=== PATIENT | female | born 1950 | race Caucasian/White ===

== ENCOUNTER 2022-08-13 08:09 | Inpatient (IN) | payer MEDICARE, OTHER ==
[2022-08-13] VITALS (14 sets, daily range): BP systolic 85–123; BP diastolic 38–83; PULSE 61–78; RESP 18–24; TEMP 96.3–99; O2SAT 93–97
[~2022-08-13] VITALS: Ht 154.9 cm; Wt 67.3 kg
[2022-08-13] MEDS ORDERED: 0.9% SODIUM CHLORIDE 10 ML SYRINGE IVP PRN ×2 (08:30→11:00)
[2022-08-13 08:50] LABS: APPEARANCE,URINE TURBID (CLEAR); BILIRUBIN,URINE NEGATIVE (NEGATIVE); GLUCOSE, URINE (UA) 70-100 mg/dL (NEGATIVE); KETONES,URINE NEGATIVE (NEGATIVE); LEUKOCYTE ESTERASE ,URINE LARGE (NEGATIVE); NITRATE,URINE NEGATIVE (NEGATIVE); OCCULT BLOOD,URINE MODERATE (NEGATIVE); PH,URINE 6.5 (5.0-8.0); PROTEIN,URINE 100-200,SEE CONFIRM mg/dL (NEGATIVE); SPECIFIC GRAVITIY, URINE 1.013 (1.003-1.030); UROBILINOGEN,URINE <=1.0 mg/dL (<=1.0)
[2022-08-13 08:55] LABS: SULFOSALICYLIC ACID,URINE 2+ (Negative)
[2022-08-13 08:57] LABS: BACTERIA,URINE Many /HPF (None Seen); RBC,URINE 26-50 /HPF (0-2); RENAL EPITHELIAL CELLS,URINE Few /LPF (None Seen); WBC,URINE >100 /HPF (0-5)
[2022-08-13 09:14] LABS: ANION GAP 22 mmol/L (8-16); CALCIUM, TOTAL 9.8 mg/dL (8.8-10.5); CARBON DIOXIDE 21 mmol/L (22-29); CHLORIDE 100 mmol/L (98-107); CREATININE 7.34 mg/dL (0.60-1.30); GLOMERULAR FILTR. RATE CALC 5 mL/min (>60); GLUCOSE,RANDOM 291 mg/dL (70-110); POTASSIUM 4.8 mmol/L (3.5-5.1); SODIUM SERUM 143 mmol/L (136-145)
[2022-08-13 09:20] LABS: ALANINE AMINOTRANSFERASE 35 U/L (12-78); ALBUMIN 1.9 g/dL (3.4-5.0); ALKALINE PHOSPHATASE 78 U/L (46-116); ASPARTATE AMINOTRANSFERASE 55 U/L (15-37); BASOPHILS % (AUTO) 0.1 % (0.0-2.0); BILIRUBIN,TOTAL 0.3 mg/dL (0.1-1.0); CREATINE KINASE, TOTAL ONLY 44 U/L (26-192); D-DIMER 1.98 mg/L FEU (0.00-0.50); EOSINOPHILS % (AUTO) 0 % (1.0-6.0); INR 1.3 (0.9-1.1); MEAN CORPUSCULAR HEMOGLOBIN 30.8 pg (26.0-34.0); MEAN CORPUSCULAR HGB CONC 30.5 G/dL (31.0-37.0); MEAN CORPUSCULAR VOLUME 101 fL (80-100); PROTHROMBIN TIME 13.2 SEC (9.4-11.6); RED BLOOD CELL COUNT(AUTO) 1.63 MIL/uL (4.00-5.20); TOTAL PROTEIN, SERUM 5.9 g/dL (6.4-8.2)
[2022-08-13 09:26] LABS: LYMPHOCYTES % (AUTO) 4.5 % (22.0-44.0); MONOCYTES # (AUTO) 0.6 K/uL (0.1-1.0); MONOCYTES % (AUTO) 2.5 % (2.0-9.0); NEUTROPHILS # (AUTO) 21.4 K/uL (1.8-7.7); PLATELET COUNT (AUTO) 279 K/uL (150-450); RED CELL DISTRIBUTION WIDTH 16.8 % (11.5-14.5)
[2022-08-13 09:27] LABS: B-TYPE NATRIURETIC PEPTIDE 1260 pg/mL (0-100)
[2022-08-13 09:29] LABS: NEUTROPHILS % (AUTO) 92.9 % (40.0-70.0)
[2022-08-13 09:32] LABS: HEMATOCRIT 16.4 % (36-46)
[2022-08-13 09:34] LABS: COVID AG,FIA SOURCE NASAL SWAB
[2022-08-13 09:34] LABS: LACTIC ACID 6.7 mmol/L (0.4-2.0)
[2022-08-13] MEDS ORDERED: AZITHROMYCIN 500 MG/NS 250 ML IV ONE (09:45)
[2022-08-13] MEDS ORDERED: CefTRIAXone 1 GM/DEXTROSE 50 ML IV ONE (09:45)
[2022-08-13] MEDS ORDERED: ONDANSETRON HCL 4 MG/2 ML VIAL IVP ONE (09:45)
[2022-08-13 09:57] LABS: INFLUENZA TYPE A NEGATIVE FOR TYPE A (NEGATIVE); INFLUENZA TYPE B NEGATIVE FOR TYPE B (NEGATIVE)
[2022-08-13 10:07] LABS: PATHOLOGY REVIEW, DIFF YES
[2022-08-13] MEDS ORDERED: FUROSEMIDE 20 MG/2 ML VIAL IVP ONE (10:30)
[2022-08-13] MEDS ORDERED: PANTOPRAZOLE SODIUM 40 MG/VIAL IVP ONE (10:30)
[2022-08-13] MEDS ORDERED: PANTOPRAZOLE SODIUM 80 MG in SODIUM CHLORIDE 0.9% 100 ML IV SCH (10:30)
[2022-08-13] MEDS ORDERED: ONDANSETRON HCL 4 MG/2 ML VIAL IVP PRN (11:00)
[2022-08-13] MEDS ORDERED: ALBUTEROL SULFATE 2.5 MG/0.5 ML NEB SOLUTION NEB PRN (11:00)
[2022-08-13] MEDS ORDERED: PIPERACILLIN/TAZO 3.375 GM/D5W 50 ML IV ONE (11:00)
[2022-08-13] MEDS ORDERED: IPRATROPIUM BROMIDE 0.5 MG/2.5 ML NEB SOLUTION NEB PRN (11:00)
[2022-08-13] MEDS ORDERED: SODIUM CHLORIDE 0.9% 250 ML IV ONE (11:15)
[2022-08-13] MEDS ORDERED: NOREPINEPHRINE 8 MG/D5%-WATER 250 ML IV ONE (11:15)
[2022-08-13] MEDS ORDERED: VANCOMYCIN 1GM/WATER(PEG/NADA) 200 ML IV PRN (11:15)
[2022-08-13] MEDS ORDERED: NOREPINEPHRINE 8 MG/D5%-WATER 250 ML IV PRN (11:15)
[2022-08-13] MEDS ORDERED: VANCOMYCIN 1GM/WATER(PEG/NADA) 200 ML IV ONE (12:00)
[2022-08-13 14:13] LABS: ABG BASE EXCESS -5.5 mmol/L (-2.0-3.0); ABG CARBOXYHEMOGLOBIN 0.8 % (0.0-1.5); ABG HCO3 20.1 mmol/L (22.0-26.0); ABG METHEMOGLOBIN 0.3 % (0.0-1.5); ABG OXYGEN CONTENT 9.2 mL/dL (15.0-23.0); ABG OXYGEN SATURATION 86.1 % (95.0-98.0); ABG OXYHEMOGLOBIN 85.2 % (94.0-100.0); ABG PCO2 35 mmHg (35-45); ABG PH 7.369 (7.35-7.450); PO2, ARTERIAL BG 58.1 mmHg (75.0-83.0); SOURCE, BLOOD GAS ARTERIAL; TEMPERATURE, FAHRENHEIT, BG 97.3 FAHREN (96.0-98.6)
[2022-08-13 14:14] LABS: ABG TOTAL HEMOGLOBIN 7.6 G/dL (12.0-18.0); O2 DEVICE,BLOOD GAS CANNULA (ROOM AIR); SITE, BLOOD GAS RT RADIAL
[2022-08-13] MEDS: ALBUTEROL SULFATE 2.5 MG/0.5 ML NEB SOLUTION NEB SCH ×2 (14:21→19:57)
[2022-08-13] MEDS: IPRATROPIUM BROMIDE 0.5 MG/2.5 ML NEB SOLUTION NEB SCH ×2 (14:21→19:57)
[2022-08-13 14:28] LABS: HEMATOCRIT 20.1 % (36-46); HEMOGLOBIN 5.9 g/dL (12.0-16.0)
[2022-08-13 17:26] LABS: GLUCOMETER DEV NAME(LOC) ER.6; GLUCOSE,POINT OF CARE 285 MG/DL (70-110)
[2022-08-13] MEDS: PANTOPRAZOLE SODIUM 80 MG in SODIUM CHLORIDE 0.9% 100 ML IV SCH (18:10)
[2022-08-13 20:44] LABS: HEMATOCRIT 26.2 % (36-46); HEMOGLOBIN 8.2 g/dL (12.0-16.0)
[2022-08-13] MEDS: PIPERACILLIN SODIUM/TAZOBACTAM 2.25 GM in DEXTROSE 5%-WATER 50 ML IV SCH (21:14)
[2022-08-14] VITALS (15 sets, daily range): BP systolic 91–169; BP diastolic 54–73; PULSE 68–84; RESP 16–26; TEMP 97.7–99.3; O2SAT 95–100
[2022-08-14] MEDS ORDERED: GLUCAGON,HUMAN RECOMBINANT 1 MG VIAL IM PRN (00:30)
[2022-08-14] MEDS ORDERED: INSULIN LISPRO 100 UNITS/ML SQ PRN (00:30)
[2022-08-14] MEDS ORDERED: DEXTROSE 50%-WATER 25 GM/50 ML SYG IVP PRN (00:45)
[2022-08-14] MEDS: INSULIN LISPRO 100 UNITS/ML SQ PRN ×3 (00:56→17:35)
[2022-08-14] MEDS: ALBUTEROL SULFATE 2.5 MG/0.5 ML NEB SOLUTION NEB SCH ×4 (01:56→20:23)
[2022-08-14] MEDS: IPRATROPIUM BROMIDE 0.5 MG/2.5 ML NEB SOLUTION NEB SCH ×4 (01:56→20:23)
[2022-08-14] MEDS: NOREPINEPHRINE 8 MG/D5%-WATER 250 ML IV PRN (02:50)
[2022-08-14] MEDS: PANTOPRAZOLE SODIUM 80 MG in SODIUM CHLORIDE 0.9% 100 ML IV SCH ×2 (04:31→15:38)
[2022-08-14] MEDS: PIPERACILLIN SODIUM/TAZOBACTAM 2.25 GM in DEXTROSE 5%-WATER 50 ML IV SCH ×3 (04:31→20:42)
[2022-08-14 04:41] LABS: HEMATOCRIT 23.3 % (36-46); HEMOGLOBIN 7.5 g/dL (12.0-16.0); MEAN CORPUSCULAR HEMOGLOBIN 30.1 pg (26.0-34.0); MEAN CORPUSCULAR HGB CONC 32.3 G/dL (31.0-37.0); MEAN CORPUSCULAR VOLUME 93 fL (80-100); PLATELET COUNT (AUTO) 254 K/uL (150-450); RED CELL DISTRIBUTION WIDTH 18.8 % (11.5-14.5)
[2022-08-14 04:54] LABS: ALBUMIN 1.9 g/dL (3.4-5.0); BILIRUBIN,TOTAL 0.4 mg/dL (0.1-1.0); CALCIUM, TOTAL 9.1 mg/dL (8.8-10.5); CREATININE 6.72 mg/dL (0.60-1.30); POTASSIUM 4.7 mmol/L (3.5-5.1); TOTAL PROTEIN, SERUM 5.8 g/dL (6.4-8.2)
[2022-08-14 05:11] LABS: BAND NEUTROPHILS % (MANUAL) 12 % (0-5); LYMPHOCYTES % (MANUAL) 3 % (22-44); MONOCYTES % (MANUAL) 3 % (2-9); SEGMENTED NEUTROPHILS % 82 % (40-70)
[2022-08-14 05:57] LABS: GLUCOSE,POINT OF CARE 245 MG/DL (70-110)
[2022-08-14 07:11] LABS: GLUCOSE,POINT OF CARE 226 MG/DL (70-110)
[2022-08-14] MEDS: ETHYL ALCOHOL 62% ANTISEPTIC NASAL SANITIZER 0.6 ML AMPUL NASAL SCH ×2 (11:17→20:42)
[2022-08-14 15:00] LABS: HEMATOCRIT 21.4 % (36-46)
[2022-08-14 17:31] LABS: GLUCOSE,POINT OF CARE 163 MG/DL (70-110)
[2022-08-14 20:16] LABS: GLUCOSE,POINT OF CARE 162 MG/DL (70-110)
[2022-08-14 22:01] LABS: HEMATOCRIT 21.7 % (36-46)
[2022-08-14 22:03] LABS: SPECIMENTYPE,BODY FLUID PERITONEAL
[2022-08-14 22:11] LABS: GLUCOSE,POINT OF CARE 185 MG/DL (70-110)
[2022-08-14 22:11] LABS: APPEARANCE,SPUN,BODY FLUID CLEAR (CLEAR); APPEARANCE,UNSPUN,BODY FLUID CLEAR (CLEAR); COLOR,BODY FLUID COLORLESS (LT YELLOW); TOTAL VOLUME,BODY FLUID 20 mL
[2022-08-14 22:15] LABS: WBC, BODY FLUID 8 /cu. mm.
[2022-08-14 22:39] LABS: BASOPHILS,BODY FLUID 0 %; EOSINOPHILS,BF (ANAL) 0 %; LYMPHOCYTES,BODY FLUID 61 %; MONOCYTES,BODY FLUID 24 %; NEUTROPHILS,BODY FLUID 15 %
[2022-08-15] VITALS (17 sets, daily range): BP systolic 91–152; BP diastolic 56–71; PULSE 74–103; RESP 16–26; TEMP 97.6–99; O2SAT 95–100
[2022-08-15] MEDS: PANTOPRAZOLE SODIUM 80 MG in SODIUM CHLORIDE 0.9% 100 ML IV SCH ×3 (01:15→20:44)
[2022-08-15] MEDS: INSULIN LISPRO 100 UNITS/ML SQ PRN (01:16)
[2022-08-15] MEDS: IPRATROPIUM BROMIDE 0.5 MG/2.5 ML NEB SOLUTION NEB SCH ×4 (02:41→20:10)
[2022-08-15] MEDS: ALBUTEROL SULFATE 2.5 MG/0.5 ML NEB SOLUTION NEB SCH ×4 (02:41→20:10)
[2022-08-15] MEDS: PIPERACILLIN SODIUM/TAZOBACTAM 2.25 GM in DEXTROSE 5%-WATER 50 ML IV SCH ×3 (03:45→20:44)
[2022-08-15 07:06] LABS: GLUCOSE,POINT OF CARE 139 MG/DL (70-110)
[2022-08-15 07:28] LABS: HEMATOCRIT 19.7 % (36-46); HEMOGLOBIN 6.5 g/dL (12.0-16.0)
[2022-08-15] MEDS ORDERED: SODIUM CHLORIDE 0.9% 500 ML IV ONE (07:47)
[2022-08-15] MEDS: GABAPENTIN 300 MG CAPSULE PO SCH (08:39)
[2022-08-15] MEDS: ETHYL ALCOHOL 62% ANTISEPTIC NASAL SANITIZER 0.6 ML AMPUL NASAL SCH ×2 (08:39→20:48)
[2022-08-15] MEDS ORDERED: VANCOMYCIN 1GM/WATER(PEG/NADA) 200 ML IV ONE (10:00)
[2022-08-15 15:01] LABS: CALCIUM, TOTAL 6.8 mg/dL (8.8-10.5); CREATININE 5.14 mg/dL (0.60-1.30); PHOSPHORUS 5.4 mg/dL (2.5-4.9)
[2022-08-15 16:07] LABS: S PNEUMO SOURCE Urine; STREP PNEUMONIAE AG URINE Negative (Negative)
[2022-08-15 17:07] LABS: LEGIONELLA PNEUMO AG URINE Negative (Negative)
[2022-08-15 17:35] LABS: BASOPHILS % (AUTO) 0.2 % (0.0-2.0); EOSINOPHILS % (AUTO) 0.8 % (1.0-6.0); HEMATOCRIT 24.5 % (36-46); HEMOGLOBIN 8.1 g/dL (12.0-16.0); LYMPHOCYTES # (AUTO) 0.9 K/uL (1.0-4.8); LYMPHOCYTES % (AUTO) 5.9 % (22.0-44.0); MEAN CORPUSCULAR HEMOGLOBIN 30.6 pg (26.0-34.0); MEAN CORPUSCULAR VOLUME 93 fL (80-100); MONOCYTES # (AUTO) 0.8 K/uL (0.1-1.0); MONOCYTES % (AUTO) 5.5 % (2.0-9.0); NEUTROPHILS # (AUTO) 13.4 K/uL (1.8-7.7); NEUTROPHILS % (AUTO) 87.6 % (40.0-70.0); PLATELET COUNT (AUTO) 145 K/uL (150-450); RED BLOOD CELL COUNT(AUTO) 2.63 MIL/uL (4.00-5.20); RED CELL DISTRIBUTION WIDTH 16.9 % (11.5-14.5)
[2022-08-15] MEDS ORDERED: POTASSIUM CHLORIDE 20 MEQ ER TABLET PO ONE (18:00)
[2022-08-15 19:16] LABS: GLUCOSE,POINT OF CARE 106 MG/DL (70-110)
[2022-08-16] VITALS (15 sets, daily range): BP systolic 87–154; BP diastolic 52–64; PULSE 77–105; RESP 16–22; TEMP 97.6–100.3; O2SAT 97–100
[2022-08-16 00:16] LABS: GLUCOSE,POINT OF CARE 138 MG/DL (70-110)
[2022-08-16] MEDS: IPRATROPIUM BROMIDE 0.5 MG/2.5 ML NEB SOLUTION NEB SCH ×4 (01:05→19:51)
[2022-08-16] MEDS: ALBUTEROL SULFATE 2.5 MG/0.5 ML NEB SOLUTION NEB SCH ×4 (01:05→19:51)
[2022-08-16] MEDS: PIPERACILLIN SODIUM/TAZOBACTAM 2.25 GM in DEXTROSE 5%-WATER 50 ML IV SCH ×3 (04:36→20:18)
[2022-08-16] MEDS: NOREPINEPHRINE 8 MG/D5%-WATER 250 ML IV PRN (04:37)
[2022-08-16] MEDS ORDERED: SODIUM CHLORIDE 0.9% 250 ML IV ONE (04:40)
[2022-08-16 05:33] LABS: BASOPHILS % (AUTO) 0.1 % (0.0-2.0); EOSINOPHILS % (AUTO) 1.4 % (1.0-6.0); HEMATOCRIT 26.6 % (36-46); HEMOGLOBIN 8.9 g/dL (12.0-16.0); LYMPHOCYTES # (AUTO) 0.8 K/uL (1.0-4.8); LYMPHOCYTES % (AUTO) 6.2 % (22.0-44.0); MEAN CORPUSCULAR HGB CONC 33.5 G/dL (31.0-37.0); MEAN CORPUSCULAR VOLUME 93 fL (80-100); MONOCYTES # (AUTO) 0.7 K/uL (0.1-1.0); MONOCYTES % (AUTO) 5.1 % (2.0-9.0); NEUTROPHILS # (AUTO) 11.9 K/uL (1.8-7.7); PLATELET COUNT (AUTO) 150 K/uL (150-450); RED BLOOD CELL COUNT(AUTO) 2.87 MIL/uL (4.00-5.20)
[2022-08-16 05:37] LABS: NEUTROPHILS % (AUTO) 87.2 % (40.0-70.0)
[2022-08-16 05:41] LABS: GLUCOSE,POINT OF CARE 138 MG/DL (70-110)
[2022-08-16 05:44] LABS: CALCIUM, TOTAL 8.4 mg/dL (8.8-10.5); CREATININE 5.46 mg/dL (0.60-1.30); MAGNESIUM 1.8 mg/dL (1.80-2.40); PHOSPHORUS 5.9 mg/dL (2.5-4.9); POTASSIUM 4.7 mmol/L (3.5-5.1)
[2022-08-16] MEDS: PANTOPRAZOLE SODIUM 80 MG in SODIUM CHLORIDE 0.9% 100 ML IV SCH ×2 (06:26→16:32)
[2022-08-16] MEDS: GABAPENTIN 300 MG CAPSULE PO SCH (07:52)
[2022-08-16] MEDS: ETHYL ALCOHOL 62% ANTISEPTIC NASAL SANITIZER 0.6 ML AMPUL NASAL SCH ×2 (07:52→20:18)
[2022-08-16] MEDS: MIDODRINE HCL 5 MG TABLET PO SCH ×2 (12:21→20:20)
[2022-08-16 17:41] LABS: GLUCOSE,POINT OF CARE 111 MG/DL (70-110)
[2022-08-16] MEDS: ACETAMINOPHEN 325 MG TABLET PO PRN (20:20)
[2022-08-16 21:15] LABS: GLUCOSE,POINT OF CARE 134 MG/DL (70-110)
[2022-08-17] VITALS (14 sets, daily range): BP systolic 116–144; BP diastolic 57–74; PULSE 73–99; RESP 16–19; TEMP 98.8–99.4; O2SAT 94–100
[2022-08-17] MEDS: INSULIN LISPRO 100 UNITS/ML SQ PRN ×2 (00:09→17:44)
[2022-08-17] MEDS: ALBUTEROL SULFATE 2.5 MG/0.5 ML NEB SOLUTION NEB SCH ×5 (02:00→20:10)
[2022-08-17] MEDS: IPRATROPIUM BROMIDE 0.5 MG/2.5 ML NEB SOLUTION NEB SCH ×5 (02:00→20:10)
[2022-08-17] MEDS: PANTOPRAZOLE SODIUM 80 MG in SODIUM CHLORIDE 0.9% 100 ML IV SCH ×3 (02:36→23:10)
[2022-08-17] MEDS: PIPERACILLIN SODIUM/TAZOBACTAM 2.25 GM in DEXTROSE 5%-WATER 50 ML IV SCH ×3 (05:00→19:58)
[2022-08-17 05:31] LABS: CALCIUM, TOTAL 8.5 mg/dL (8.8-10.5); CREATININE 5.35 mg/dL (0.60-1.30); POTASSIUM 4.8 mmol/L (3.5-5.1)
[2022-08-17] MEDS ORDERED: SODIUM CHLORIDE 0.9% 250 ML IV ONE (05:34)
[2022-08-17 05:37] LABS: ALBUMIN 1.6 g/dL (3.4-5.0); BILIRUBIN,TOTAL 0.6 mg/dL (0.1-1.0); TOTAL PROTEIN, SERUM 5.5 g/dL (6.4-8.2)
[2022-08-17 05:45] LABS: GLUCOSE,POINT OF CARE 86 MG/DL (70-110)
[2022-08-17 06:25] LABS: GLUCOSE,POINT OF CARE 169 MG/DL (70-110)
[2022-08-17 06:26] LABS: GLUCOSE,POINT OF CARE 81 MG/DL (70-110)
[2022-08-17] MEDS: GABAPENTIN 300 MG CAPSULE PO SCH (08:27)
[2022-08-17] MEDS: MIDODRINE HCL 5 MG TABLET PO SCH ×2 (08:27→21:00)
[2022-08-17] MEDS: ETHYL ALCOHOL 62% ANTISEPTIC NASAL SANITIZER 0.6 ML AMPUL NASAL SCH ×2 (08:27→19:58)
[2022-08-17 10:46] LABS: BASOPHILS % (AUTO) 0.4 % (0.0-2.0); EOSINOPHILS % (AUTO) 1.4 % (1.0-6.0); HEMATOCRIT 25.8 % (36-46); HEMOGLOBIN 8.4 g/dL (12.0-16.0); LYMPHOCYTES # (AUTO) 1.1 K/uL (1.0-4.8); LYMPHOCYTES % (AUTO) 7.7 % (22.0-44.0); MEAN CORPUSCULAR HEMOGLOBIN 30.9 pg (26.0-34.0); MEAN CORPUSCULAR HGB CONC 32.7 G/dL (31.0-37.0); MEAN CORPUSCULAR VOLUME 94 fL (80-100); MONOCYTES % (AUTO) 7.2 % (2.0-9.0); NEUTROPHILS # (AUTO) 11.6 K/uL (1.8-7.7); NEUTROPHILS % (AUTO) 83.3 % (40.0-70.0); PLATELET COUNT (AUTO) 141 K/uL (150-450); RED BLOOD CELL COUNT(AUTO) 2.74 MIL/uL (4.00-5.20); RED CELL DISTRIBUTION WIDTH 16.6 % (11.5-14.5)
[2022-08-17] MEDS: EPOETIN ALFA 10,000 UNITS/ML VIAL SQ SCH (14:49)
[2022-08-17] MEDS: FOLIC ACID/VIT B COMPLEX AND C TABLET PO SCH (14:49)
[2022-08-17 17:11] LABS: GLUCOSE,POINT OF CARE 134 MG/DL (70-110)
[2022-08-17] MEDS ORDERED: HydrALAZINE HCL 20 MG/ML VIAL IVP PRN (19:15)
[2022-08-17 20:30] LABS: GLUCOSE,POINT OF CARE 153 MG/DL (70-110)
[2022-08-18] VITALS (13 sets, daily range): BP systolic 88–135; BP diastolic 50–67; PULSE 85–103; RESP 12–18; TEMP 98.8–99.6; O2SAT 96–100
[2022-08-18] MEDS: INSULIN LISPRO 100 UNITS/ML SQ PRN ×2 (00:19→13:23)
[2022-08-18] MEDS: IPRATROPIUM BROMIDE 0.5 MG/2.5 ML NEB SOLUTION NEB SCH ×4 (01:15→19:37)
[2022-08-18] MEDS: ALBUTEROL SULFATE 2.5 MG/0.5 ML NEB SOLUTION NEB SCH ×5 (01:15→19:37)
[2022-08-18] MEDS: PIPERACILLIN SODIUM/TAZOBACTAM 2.25 GM in DEXTROSE 5%-WATER 50 ML IV SCH ×3 (04:13→20:47)
[2022-08-18 04:26] LABS: GLUCOSE,POINT OF CARE 210 MG/DL (70-110)
[2022-08-18 05:21] LABS: BASOPHILS % (AUTO) 0.4 % (0.0-2.0); EOSINOPHILS % (AUTO) 2.9 % (1.0-6.0); HEMATOCRIT 26.3 % (36-46); HEMOGLOBIN 8.5 g/dL (12.0-16.0); LYMPHOCYTES # (AUTO) 0.8 K/uL (1.0-4.8); LYMPHOCYTES % (AUTO) 6.2 % (22.0-44.0); MEAN CORPUSCULAR HEMOGLOBIN 30.3 pg (26.0-34.0); MEAN CORPUSCULAR HGB CONC 32.3 G/dL (31.0-37.0); MEAN CORPUSCULAR VOLUME 94 fL (80-100); MONOCYTES # (AUTO) 0.9 K/uL (0.1-1.0); NEUTROPHILS % (AUTO) 83.5 % (40.0-70.0); PLATELET COUNT (AUTO) 183 K/uL (150-450); RED BLOOD CELL COUNT(AUTO) 2.81 MIL/uL (4.00-5.20); RED CELL DISTRIBUTION WIDTH 17.3 % (11.5-14.5)
[2022-08-18 05:36] LABS: ALBUMIN 1.4 g/dL (3.4-5.0); BILIRUBIN,TOTAL 0.4 mg/dL (0.1-1.0); CALCIUM, TOTAL 8.7 mg/dL (8.8-10.5); CREATININE 5.6 mg/dL (0.60-1.30); POTASSIUM 3.5 mmol/L (3.5-5.1); TOTAL PROTEIN, SERUM 5.5 g/dL (6.4-8.2); VANCOMYCIN,RANDOM 21.3 mcg/mL (25.0-50.0)
[2022-08-18 06:31] LABS: GLUCOSE,POINT OF CARE 128 MG/DL (70-110)
[2022-08-18] MEDS: GABAPENTIN 300 MG CAPSULE PO SCH (08:21)
[2022-08-18] MEDS: FOLIC ACID/VIT B COMPLEX AND C TABLET PO SCH (08:21)
[2022-08-18] MEDS: PANTOPRAZOLE SODIUM 80 MG in SODIUM CHLORIDE 0.9% 100 ML IV SCH ×2 (08:22→18:07)
[2022-08-18] MEDS: ETHYL ALCOHOL 62% ANTISEPTIC NASAL SANITIZER 0.6 ML AMPUL NASAL SCH ×2 (08:23→20:47)
[2022-08-18] MEDS: MIDODRINE HCL 5 MG TABLET PO SCH ×2 (08:27→10:18)
[2022-08-18 13:25] LABS: GLUCOSE,POINT OF CARE 194 MG/DL (70-110)
[2022-08-18 21:52] LABS: GLUCOSE,POINT OF CARE 89 MG/DL (70-110)
[2022-08-19] VITALS (12 sets, daily range): BP systolic 112–171; BP diastolic 68–78; PULSE 87–110; RESP 12–20; TEMP 96.3–99.6; O2SAT 92–100
[2022-08-19] MEDS: INSULIN LISPRO 100 UNITS/ML SQ PRN ×2 (00:12→11:34)
[2022-08-19 01:11] LABS: GLUCOSE,POINT OF CARE 168 MG/DL (70-110)
[2022-08-19] MEDS: ALBUTEROL SULFATE 2.5 MG/0.5 ML NEB SOLUTION NEB SCH ×4 (02:00→19:49)
[2022-08-19] MEDS: IPRATROPIUM BROMIDE 0.5 MG/2.5 ML NEB SOLUTION NEB SCH ×4 (02:00→19:49)
[2022-08-19] MEDS: PIPERACILLIN SODIUM/TAZOBACTAM 2.25 GM in DEXTROSE 5%-WATER 50 ML IV SCH ×3 (03:30→19:37)
[2022-08-19] MEDS: PANTOPRAZOLE SODIUM 80 MG in SODIUM CHLORIDE 0.9% 100 ML IV SCH ×2 (03:30→14:51)
[2022-08-19 06:23] LABS: BASOPHILS % (AUTO) 0.5 % (0.0-2.0); EOSINOPHILS % (AUTO) 3.3 % (1.0-6.0); HEMATOCRIT 24.4 % (36-46); HEMOGLOBIN 7.9 g/dL (12.0-16.0); LYMPHOCYTES # (AUTO) 0.9 K/uL (1.0-4.8); MEAN CORPUSCULAR HEMOGLOBIN 30.1 pg (26.0-34.0); MEAN CORPUSCULAR HGB CONC 32.4 G/dL (31.0-37.0); MEAN CORPUSCULAR VOLUME 93 fL (80-100); MONOCYTES # (AUTO) 0.9 K/uL (0.1-1.0); MONOCYTES % (AUTO) 6.9 % (2.0-9.0); NEUTROPHILS # (AUTO) 11.1 K/uL (1.8-7.7); NEUTROPHILS % (AUTO) 82.3 % (40.0-70.0); PLATELET COUNT (AUTO) 198 K/uL (150-450); RED BLOOD CELL COUNT(AUTO) 2.62 MIL/uL (4.00-5.20)
[2022-08-19 06:44] LABS: POTASSIUM 3.2 mmol/L (3.5-5.1)
[2022-08-19 06:45] LABS: ALBUMIN 1.3 g/dL (3.4-5.0); BILIRUBIN,TOTAL 0.3 mg/dL (0.1-1.0); CALCIUM, TOTAL 8.8 mg/dL (8.8-10.5); CREATININE 5.37 mg/dL (0.60-1.30); TOTAL PROTEIN, SERUM 5.3 g/dL (6.4-8.2)
[2022-08-19] MEDS ORDERED: VANCOMYCIN HCL 750 MG in DEXTROSE 5%-WATER 250 ML IV ONE (08:00)
[2022-08-19] MEDS: ACETAMINOPHEN 325 MG TABLET PO PRN ×2 (08:24→19:37)
[2022-08-19] MEDS: GABAPENTIN 300 MG CAPSULE PO SCH (08:24)
[2022-08-19] MEDS: ETHYL ALCOHOL 62% ANTISEPTIC NASAL SANITIZER 0.6 ML AMPUL NASAL SCH ×2 (08:25→19:37)
[2022-08-19] MEDS: MIDODRINE HCL 5 MG TABLET PO SCH ×2 (08:25→19:44)
[2022-08-19] MEDS: FOLIC ACID/VIT B COMPLEX AND C TABLET PO SCH (08:35)
[2022-08-19 08:36] LABS: GLUCOSE,POINT OF CARE 121 MG/DL (70-110)
[2022-08-19] MEDS ORDERED: POTASSIUM CHLORIDE 10 MEQ ER TABLET PO ONE (10:45)
[2022-08-19] MEDS: PANTOPRAZOLE SODIUM 40 MG/VIAL IVP SCH (19:37)
[2022-08-19 20:11] LABS: GLUCOSE,POINT OF CARE 162 MG/DL (70-110)
[2022-08-19 20:11] LABS: GLUCOSE,POINT OF CARE 178 MG/DL (70-110)
[2022-08-20] VITALS (15 sets, daily range): BP systolic 100–140; BP diastolic 51–92; PULSE 84–99; RESP 16–20; TEMP 96.8–98.5; O2SAT 94–100
[2022-08-20] MEDS: IPRATROPIUM BROMIDE 0.5 MG/2.5 ML NEB SOLUTION NEB SCH ×4 (02:00→20:12)
[2022-08-20] MEDS: ALBUTEROL SULFATE 2.5 MG/0.5 ML NEB SOLUTION NEB SCH ×4 (02:00→20:12)
[2022-08-20] MEDS: PIPERACILLIN SODIUM/TAZOBACTAM 2.25 GM in DEXTROSE 5%-WATER 50 ML IV SCH ×3 (04:33→22:09)
[2022-08-20 06:46] LABS: GLUCOSE,POINT OF CARE 130 MG/DL (70-110)
[2022-08-20] MEDS: MIDODRINE HCL 5 MG TABLET PO SCH ×2 (08:07→21:00)
[2022-08-20] MEDS: GABAPENTIN 300 MG CAPSULE PO SCH (08:07)
[2022-08-20] MEDS: PANTOPRAZOLE SODIUM 40 MG/VIAL IVP SCH ×2 (08:07→22:09)
[2022-08-20] MEDS: EPOETIN ALFA 10,000 UNITS/ML VIAL SQ SCH (08:07)
[2022-08-20] MEDS: FOLIC ACID/VIT B COMPLEX AND C TABLET PO SCH (08:07)
[2022-08-20] MEDS: ETHYL ALCOHOL 62% ANTISEPTIC NASAL SANITIZER 0.6 ML AMPUL NASAL SCH ×2 (08:08→22:22)
[2022-08-20 09:17] LABS: CREATININE 5.56 mg/dL (0.60-1.30); MAGNESIUM 1.9 mg/dL (1.80-2.40); PHOSPHORUS 7.5 mg/dL (2.5-4.9); POTASSIUM 3.6 mmol/L (3.5-5.1)
[2022-08-20] MEDS ORDERED: MIDAZOLAM HCL 2 MG/2 ML VIAL ONE (13:51)
[2022-08-20] MEDS ORDERED: FentaNYL CITRATE PF 100 MCG/2 ML VIAL ONE (13:51)
[2022-08-20] MEDS ORDERED: SODIUM CHLORIDE 0.9% 500 ML IV ONE (14:24)
[2022-08-20] MEDS ORDERED: LACT10SO10 PO (17:07)
[2022-08-20] MEDS ORDERED: INSU100V SQ ×2 (17:07)
[2022-08-20] MEDS ORDERED: HEPA500018 SQ (17:07)
[2022-08-20] MEDS ORDERED: PYRI-6 PO (17:07)
[2022-08-20] MEDS ORDERED: LANT500T7 PO (17:07)
[2022-08-20] MEDS ORDERED: INSLAN SQ (17:07)
[2022-08-20] MEDS ORDERED: PANT-31 PO (17:07)
[2022-08-20] MEDS ORDERED: LEVO88TA4 PO (17:07)
[2022-08-20] MEDS ORDERED: DEXT12.511 PO (17:07)
[2022-08-20] MEDS ORDERED: SERT-158 PO (17:07)
[2022-08-20] MEDS ORDERED: IPRA4AER IH (17:07)
[2022-08-20] MEDS ORDERED: ONDA-104 PO (17:07)
[2022-08-20] MEDS ORDERED: GENTOS MISC (17:07)
[2022-08-20] MEDS ORDERED: FOLI-130 PO (17:07)
[2022-08-20] MEDS ORDERED: CHOL500013 PO (17:07)
[2022-08-20] MEDS ORDERED: NYST15CR41 TP (17:07)
[2022-08-20] MEDS ORDERED: EPOE10I SQ (17:07)
[2022-08-20] MEDS ORDERED: CLOP75TA60 PO (17:07)
[2022-08-20] MEDS: SEVELAMER CARBONATE 800 MG TABLET PO SCH (18:07)
[2022-08-21] VITALS (15 sets, daily range): BP systolic 114–153; BP diastolic 61–106; PULSE 86–104; RESP 16–20; TEMP 97.8–98.6; O2SAT 90–100
[2022-08-21] MEDS: ALBUTEROL SULFATE 2.5 MG/0.5 ML NEB SOLUTION NEB SCH ×4 (02:25→20:06)
[2022-08-21] MEDS: IPRATROPIUM BROMIDE 0.5 MG/2.5 ML NEB SOLUTION NEB SCH ×4 (02:25→20:06)
[2022-08-21] MEDS: PIPERACILLIN SODIUM/TAZOBACTAM 2.25 GM in DEXTROSE 5%-WATER 50 ML IV SCH ×3 (04:33→20:59)
[2022-08-21 05:42] LABS: GLUCOSE,POINT OF CARE 129 MG/DL (70-110)
[2022-08-21 05:42] LABS: GLUCOSE,POINT OF CARE 89 MG/DL (70-110)
[2022-08-21] MEDS: INSULIN LISPRO 100 UNITS/ML SQ PRN ×2 (05:57→17:22)
[2022-08-21] MEDS: LEVOTHYROXINE SODIUM 88 MCG TABLET PO SCH (05:57)
[2022-08-21 07:05] LABS: GLUCOSE,POINT OF CARE 151 MG/DL (70-110)
[2022-08-21] MEDS: FOLIC ACID/VIT B COMPLEX AND C TABLET PO SCH (08:22)
[2022-08-21] MEDS: PANTOPRAZOLE SODIUM 40 MG/VIAL IVP SCH ×2 (08:22→22:26)
[2022-08-21] MEDS: SEVELAMER CARBONATE 800 MG TABLET PO SCH ×3 (08:22→17:22)
[2022-08-21] MEDS: GABAPENTIN 300 MG CAPSULE PO SCH (08:22)
[2022-08-21] MEDS: ETHYL ALCOHOL 62% ANTISEPTIC NASAL SANITIZER 0.6 ML AMPUL NASAL SCH ×2 (08:23→22:26)
[2022-08-21] MEDS: MIDODRINE HCL 5 MG TABLET PO SCH (08:23)
[2022-08-21 09:39] LABS: BASOPHILS % (AUTO) 0.8 % (0.0-2.0); EOSINOPHILS % (AUTO) 3.3 % (1.0-6.0); HEMATOCRIT 24.3 % (36-46); HEMOGLOBIN 8.2 g/dL (12.0-16.0); LYMPHOCYTES % (AUTO) 9.7 % (22.0-44.0); MEAN CORPUSCULAR HEMOGLOBIN 31.1 pg (26.0-34.0); MEAN CORPUSCULAR HGB CONC 33.6 G/dL (31.0-37.0); MEAN CORPUSCULAR VOLUME 93 fL (80-100); MONOCYTES # (AUTO) 0.7 K/uL (0.1-1.0); MONOCYTES % (AUTO) 6.7 % (2.0-9.0); NEUTROPHILS # (AUTO) 8.5 K/uL (1.8-7.7); NEUTROPHILS % (AUTO) 79.5 % (40.0-70.0); PLATELET COUNT (AUTO) 265 K/uL (150-450); RED BLOOD CELL COUNT(AUTO) 2.62 MIL/uL (4.00-5.20)
[2022-08-21 09:49] LABS: CREATININE 5.65 mg/dL (0.60-1.30); MAGNESIUM 1.9 mg/dL (1.80-2.40); PHOSPHORUS 7.3 mg/dL (2.5-4.9)
[2022-08-21 10:03] LABS: POTASSIUM 2.9 mmol/L (3.5-5.1)
[2022-08-21] MEDS ORDERED: POTASSIUM CHLORIDE 20 MEQ ER TABLET PO ONE (10:15)
[2022-08-21 12:35] LABS: GLUCOSE,POINT OF CARE 91 MG/DL (70-110)
[2022-08-21 18:41] LABS: GLUCOSE,POINT OF CARE 147 MG/DL (70-110)
[2022-08-21] MEDS ORDERED: POTASSIUM CHLORIDE 10 MEQ ER TABLET PO ONE (23:00)
[2022-08-22] VITALS (16 sets, daily range): BP systolic 113–141; BP diastolic 54–73; PULSE 85–97; RESP 12–20; TEMP 97.7–98.2; O2SAT 94–100
[2022-08-22] MEDS: INSULIN LISPRO 100 UNITS/ML SQ PRN (00:38)
[2022-08-22] MEDS: IPRATROPIUM BROMIDE 0.5 MG/2.5 ML NEB SOLUTION NEB SCH ×4 (02:20→20:41)
[2022-08-22] MEDS: ALBUTEROL SULFATE 2.5 MG/0.5 ML NEB SOLUTION NEB SCH ×4 (02:20→20:41)
[2022-08-22] MEDS: PIPERACILLIN SODIUM/TAZOBACTAM 2.25 GM in DEXTROSE 5%-WATER 50 ML IV SCH ×3 (03:05→20:44)
[2022-08-22 05:40] LABS: BASOPHILS % (AUTO) 0.7 % (0.0-2.0); EOSINOPHILS % (AUTO) 3.3 % (1.0-6.0); HEMATOCRIT 26.2 % (36-46); HEMOGLOBIN 8.4 g/dL (12.0-16.0); LYMPHOCYTES % (AUTO) 8.9 % (22.0-44.0); MEAN CORPUSCULAR HEMOGLOBIN 30.7 pg (26.0-34.0); MEAN CORPUSCULAR VOLUME 96 fL (80-100); MONOCYTES # (AUTO) 0.5 K/uL (0.1-1.0); NEUTROPHILS # (AUTO) 8.8 K/uL (1.8-7.7); NEUTROPHILS % (AUTO) 82.1 % (40.0-70.0); PLATELET COUNT (AUTO) 302 K/uL (150-450); RED BLOOD CELL COUNT(AUTO) 2.73 MIL/uL (4.00-5.20); RED CELL DISTRIBUTION WIDTH 17.2 % (11.5-14.5)
[2022-08-22 05:50] LABS: CALCIUM, TOTAL 9.2 mg/dL (8.8-10.5); CREATININE 5.84 mg/dL (0.60-1.30); POTASSIUM 3.3 mmol/L (3.5-5.1)
[2022-08-22] MEDS: LEVOTHYROXINE SODIUM 88 MCG TABLET PO SCH (06:27)
[2022-08-22 07:11] LABS: GLUCOSE,POINT OF CARE 93 MG/DL (70-110)
[2022-08-22 07:31] LABS: GLUCOSE,POINT OF CARE 143 MG/DL (70-110)
[2022-08-22] MEDS: SEVELAMER CARBONATE 800 MG TABLET PO SCH ×3 (08:25→17:47)
[2022-08-22] MEDS: GABAPENTIN 300 MG CAPSULE PO SCH (08:25)
[2022-08-22] MEDS: PANTOPRAZOLE SODIUM 40 MG/VIAL IVP SCH ×2 (08:25→20:44)
[2022-08-22] MEDS: FOLIC ACID/VIT B COMPLEX AND C TABLET PO SCH (08:25)
[2022-08-22] MEDS: ETHYL ALCOHOL 62% ANTISEPTIC NASAL SANITIZER 0.6 ML AMPUL NASAL SCH ×2 (08:26→20:44)
[2022-08-22] MEDS: MIDODRINE HCL 5 MG TABLET PO SCH (08:27)
[2022-08-22] MEDS: EPOETIN ALFA 10,000 UNITS/ML VIAL SQ SCH (08:31)
[2022-08-22] MEDS ORDERED: MIDAZOLAM HCL 2 MG/2 ML VIAL ONE (09:56)
[2022-08-22] MEDS ORDERED: FentaNYL CITRATE PF 100 MCG/2 ML VIAL ONE (09:56)
[2022-08-22] MEDS ORDERED: LIDOCAINE 2% VISCOUS 15 ML SOLUTION UDCUP ONE (09:58)
[2022-08-22] MEDS ORDERED: LIDOCAINE 2% VISCOUS 15 ML SOLUTION UDCUP PO ONE (10:15)
[2022-08-22] MEDS ORDERED: MIDAZOLAM HCL 2 MG/2 ML VIAL IVP ONE (10:15)
[2022-08-22] MEDS ORDERED: FentaNYL CITRATE PF 100 MCG/2 ML VIAL IVP ONE (10:15)
[2022-08-22] MEDS ORDERED: SODIUM CHLORIDE 0.9% 250 ML IV ONE (20:41)
[2022-08-22 21:11] LABS: GLUCOSE,POINT OF CARE 110 MG/DL (70-110)
[2022-08-23] VITALS (11 sets, daily range): BP systolic 102–149; BP diastolic 46–71; PULSE 91–111; RESP 12–18; TEMP 98.3–98.9; O2SAT 93–100
[2022-08-23] MEDS: INSULIN LISPRO 100 UNITS/ML SQ PRN (00:04)
[2022-08-23] MEDS: ALBUTEROL SULFATE 2.5 MG/0.5 ML NEB SOLUTION NEB SCH ×3 (01:46→14:09)
[2022-08-23] MEDS: IPRATROPIUM BROMIDE 0.5 MG/2.5 ML NEB SOLUTION NEB SCH ×3 (01:46→14:09)
[2022-08-23] MEDS: PIPERACILLIN SODIUM/TAZOBACTAM 2.25 GM in DEXTROSE 5%-WATER 50 ML IV SCH ×2 (04:24→13:15)
[2022-08-23 05:27] LABS: BASOPHILS % (AUTO) 0.7 % (0.0-2.0); EOSINOPHILS % (AUTO) 1.9 % (1.0-6.0); HEMATOCRIT 23.4 % (36-46); HEMOGLOBIN 7.7 g/dL (12.0-16.0); LYMPHOCYTES # (AUTO) 0.8 K/uL (1.0-4.8); LYMPHOCYTES % (AUTO) 6.9 % (22.0-44.0); MEAN CORPUSCULAR HEMOGLOBIN 30.3 pg (26.0-34.0); MEAN CORPUSCULAR HGB CONC 32.8 G/dL (31.0-37.0); MEAN CORPUSCULAR VOLUME 93 fL (80-100); MONOCYTES # (AUTO) 0.5 K/uL (0.1-1.0); MONOCYTES % (AUTO) 4.9 % (2.0-9.0); NEUTROPHILS # (AUTO) 9.5 K/uL (1.8-7.7); PLATELET COUNT (AUTO) 304 K/uL (150-450); RED BLOOD CELL COUNT(AUTO) 2.53 MIL/uL (4.00-5.20); RED CELL DISTRIBUTION WIDTH 16.9 % (11.5-14.5)
[2022-08-23 05:30] LABS: NEUTROPHILS % (AUTO) 85.6 % (40.0-70.0)
[2022-08-23 05:41] LABS: CALCIUM, TOTAL 8.8 mg/dL (8.8-10.5); CREATININE 5.97 mg/dL (0.60-1.30); POTASSIUM 3.3 mmol/L (3.5-5.1); VANCOMYCIN,RANDOM 20.3 mcg/mL (25.0-50.0)
[2022-08-23] MEDS: LEVOTHYROXINE SODIUM 88 MCG TABLET PO SCH (06:03)
[2022-08-23 06:36] LABS: GLUCOSE,POINT OF CARE 193 MG/DL (70-110)
[2022-08-23 06:36] LABS: GLUCOSE,POINT OF CARE 124 MG/DL (70-110)
[2022-08-23] MEDS: PANTOPRAZOLE SODIUM 40 MG/VIAL IVP SCH (08:10)
[2022-08-23] MEDS: SEVELAMER CARBONATE 800 MG TABLET PO SCH ×3 (08:10→17:43)
[2022-08-23] MEDS: MIDODRINE HCL 5 MG TABLET PO SCH (08:10)
[2022-08-23] MEDS: GABAPENTIN 300 MG CAPSULE PO SCH (08:10)
[2022-08-23] MEDS: FOLIC ACID/VIT B COMPLEX AND C TABLET PO SCH (08:11)
[2022-08-23] MEDS: ETHYL ALCOHOL 62% ANTISEPTIC NASAL SANITIZER 0.6 ML AMPUL NASAL SCH (08:12)
[2022-08-23 13:36] LABS: GLUCOSE,POINT OF CARE 117 MG/DL (70-110)
[2022-08-23] MEDS ORDERED: NYSTATIN 500,000 UNITS/5 ML SUSPENSION UDCUP PO SCH (18:00)
[2022-08-23 20:06] LABS: GLUCOSE,POINT OF CARE 104 MG/DL (70-110)
[2022-08-24] MEDS ORDERED: VANCOMYCIN HCL 750 MG in DEXTROSE 5%-WATER 250 ML IV ONE (08:00)
== END 2022-08-23 18:27 | DRG 871 ==
LOC: EMS 08:12 → ICU 18:58
PROVIDERS: ADMIT Internal Medicine; ATTEND Internal Medicine
PROC: 30233N1 Transfusion of Nonautologous Red Blood Cells into Peripheral Vein, Percutaneous Approach (ICD-10-PCS; 2022-08-13)
PROC: 5A0935A Assistance with Respiratory Ventilation, Less than 24 Consecutive Hours, High Flow/Velocity Cannula (ICD-10-PCS; 2022-08-13)
PROC: 3E1M39Z Irrigation of Peritoneal Cavity using Dialysate, Percutaneous Approach (ICD-10-PCS; principal; 2022-08-14)
PROC: 05HY33Z Insertion of Infusion Device into Upper Vein, Percutaneous Approach (ICD-10-PCS; 2022-08-14)
PROC: 3E1M39Z Irrigation of Peritoneal Cavity using Dialysate, Percutaneous Approach (ICD-10-PCS; 2022-08-15)
PROC: 3E1M39Z Irrigation of Peritoneal Cavity using Dialysate, Percutaneous Approach (ICD-10-PCS; 2022-08-17)
PROC: 3E1M39Z Irrigation of Peritoneal Cavity using Dialysate, Percutaneous Approach (ICD-10-PCS; 2022-08-18)
PROC: 3E1M39Z Irrigation of Peritoneal Cavity using Dialysate, Percutaneous Approach (ICD-10-PCS; 2022-08-20)
PROC: 0DB68ZX Excision of Stomach, Via Natural or Artificial Opening Endoscopic, Diagnostic (ICD-10-PCS; 2022-08-20)
PROC: 05HC33Z Insertion of Infusion Device into Left Basilic Vein, Percutaneous Approach (ICD-10-PCS; 2022-08-21)
PROC: 3E1M39Z Irrigation of Peritoneal Cavity using Dialysate, Percutaneous Approach (ICD-10-PCS; 2022-08-22)
DX: A41.9 Sepsis, unspecified organism (principal); I21.A1 Myocardial infarction type 2; N18.6 End stage renal disease; R65.21 Severe sepsis with septic shock; J69.0 Pneumonitis due to inhalation of food and vomit; K29.71 Gastritis, unspecified, with bleeding; K25.4 Chronic or unspecified gastric ulcer with hemorrhage; N39.0 Urinary tract infection, site not specified; E87.21 Acute metabolic acidosis; D62 Acute posthemorrhagic anemia; I69.351 Hemiplegia and hemiparesis following cerebral infarction affecting right dominant side; I13.2 Hypertensive heart and chronic kidney disease with heart failure and with stage 5 chronic kidney disease, or end stage renal disease; N25.81 Secondary hyperparathyroidism of renal origin; I34.1 Nonrheumatic mitral (valve) prolapse; Z20.822 Contact with and (suspected) exposure to COVID-19; F03.90 Unspecified dementia, unspecified severity, without behavioral disturbance, psychotic disturbance, mood disturbance, and anxiety; K21.00 Gastro-esophageal reflux disease with esophagitis, without bleeding; J44.9 Chronic obstructive pulmonary disease, unspecified; I50.9 Heart failure, unspecified; E11.51 Type 2 diabetes mellitus with diabetic peripheral angiopathy without gangrene; E87.6 Hypokalemia; E11.22 Type 2 diabetes mellitus with diabetic chronic kidney disease; B96.89 Other specified bacterial agents as the cause of diseases classified elsewhere; E11.43 Type 2 diabetes mellitus with diabetic autonomic (poly)neuropathy; F32.A Depression, unspecified; I95.9 Hypotension, unspecified; K21.9 Gastro-esophageal reflux disease without esophagitis; E78.00 Pure hypercholesterolemia, unspecified; E03.9 Hypothyroidism, unspecified; Z96.659 Presence of unspecified artificial knee joint; Z90.49 Acquired absence of other specified parts of digestive tract; Z88.8 Allergy status to other drugs, medicaments and biological substances; Z87.891 Personal history of nicotine dependence; Z89.411 Acquired absence of right great toe; Z99.2 Dependence on renal dialysis
CPT/HCPCS: 36245; 36569; 36600; 70450; 71045; 76937; 80048; 80053; 80202; 81001; 81002; 82271; 82550; 82805; 82962; 83605; 83735; 83880; 84100; 84132; 84145; 84443; 84484; 85014; 85018; 85025; 85379; 85610; 85730; 86738; 86850; 86900; 86901; 86923; 87040; 87075; 87081; 87086; 87186; 87205; 87449; 87804; 87899; 88305; 88312; 88313; 89051; 90945; 92523; 92526; 92610; 93005; 93306; 93312; 93970; 93971; 94640; 97110; 97163; 97530; 99285; C9113; G0378; J0360; J0456; J0696; J0885; J1940; J2250; J2405; J2543; J3010; J3370; J7040; J7050; J7060; P9016; Q9967; 36415-L1; 36415-TC; 87070; J7613